=== PATIENT | female | born 1950 | race Caucasian/White ===

== ENCOUNTER 2023-06-22 09:41 | Outpatient (CLI) | payer MEDICARE | END 2023-06-22 09:42 | disposition home or self-care (01) | LOC: SCSMRI 09:41 | PROVIDERS: ATTEND Family Medicine | DX: M47.22 Other spondylosis with radiculopathy, cervical region (principal); M47.813 Spondylosis without myelopathy or radiculopathy, cervicothoracic region | CPT/HCPCS: 72040; 72141 ==